=== PATIENT | female | born 1990 | race Caucasian/White ===

== ENCOUNTER 2017-07-27 00:20 | Emergency (ER) | payer SELFPAY ==
[~2017-07-27] VITALS: Ht 177.8 cm; Wt 90.9 kg
[~2017-07-27 00:20] MED LIST: BACTRIM DS1 TAB PO; NO HOME MEDS; ULTRAM50 M1 PO
[2017-07-27 01:27] LABS: HEMATOCRIT 38.1 % (37.0-47.0); HEMOGLOBIN 12.5 g/dl (12.0-16.0); IMMATURE GRANULOCYTES 0.3 % (0.0-1.0); MEAN CELL VOLUME 91.4 fL CALC (80.0-100.0); MEAN CORPUSCULAR HGB CONC 32.8 g/L CALC (32.0-36.0); NEUT# 8.09 thou/uL (2.00-7.15); RED BLOOD COUNT 4.17 mill/uL (4.20-5.60); RED CELL DISTRI WIDTH 14.1 % (11.5-15.5)
[2017-07-27] MEDS ORDERED: CLARITHROMYC500 MG PO (02:58)
[2017-07-27 03:07] VITALS: BP 113/61
== END 2017-07-27 03:20 | disposition home or self-care (01) | DRG 778 ==
LOC: ED 00:20
PROVIDERS: Family Medicine
DX: O20.0 Threatened abortion (principal); F17.290 Nicotine dependence, other tobacco product, uncomplicated; Z3A.08 8 weeks gestation of pregnancy; J40 Bronchitis, not specified as acute or chronic

== ENCOUNTER 2023-04-18 14:39 | Emergency (ER) | payer OTHER ==
[~2023-04-18] VITALS: Ht 177.8 cm; Wt 113.3 kg
[~2023-04-18 14:39] MED LIST changes: +CLARITHROMYC500 MG PO
[2023-04-18] MEDS ORDERED: SODIUM CHLORIDE 0.9% 1,000 ML IV ONE (14:55)
[2023-04-18 15:00] VITALS: BP 153/129
[2023-04-18 15:03] VITALS: BP 125/81
[2023-04-18 15:07] LABS: BASO% 0.4 % (0-3); EOS% 0.8 % (0-8); HEMATOCRIT 36.8 % (37.0-47.0); HEMOGLOBIN 12.1 g/dl (12.0-16.0); LYMPH% 20.8 % (15-41); MEAN CELL VOLUME 91.3 fL CALC (80.0-100.0); MEAN CORPUSCULAR HGB CONC 32.9 g/dL CAL (32.0-36.0); MONO% 8.4 % (2-13); NEUT# 8.07 thou/uL (2.00-7.15); NEUT% 68.6 % (42-76); RED BLOOD COUNT 4.03 mill/uL (4.20-5.60); RED CELL DISTRI WIDTH 13.8 % (11.5-15.5)
[2023-04-18 15:09] LABS: URINE BILIRUBIN - DIPSTICK Negative (NEGATIVE); URINE BLOOD DIPSTICK Negative (NEGATIVE); URINE COLOR Yellow; URINE GLUCOSE - DIPSTICK Negative (NEGATIVE); URINE KETONE Negative (NEGATIVE); URINE LEUK ESTERASE Trace (NEGATIVE); URINE NITRITE - DIPSTICK Negative (Negative); URINE PH 6.5 (4.5-8.0); URINE PROTEIN - DIPSTICK Negative (NEG-TRACE); URINE UROBILINOGEN - DIPSTICK 0.2 E.U./dL (0.2)
[2023-04-18] MEDS ORDERED: MAGNESIUM SULFATE IV ONE (15:10)
[2023-04-18] MEDS ORDERED: [UNRECOGNIZED DRUG - OTHER] IM ONE (15:10)
[2023-04-18 15:15] VITALS: BP 143/90
[2023-04-18] MEDS ORDERED: MAGNESIUM SULFATE HEPTAHYDRATE IV PRN (15:15)
[2023-04-18 15:26] LABS: ALBUMIN 3.4 g/dL (3.2-5.0); ALKALINE PHOSPHATASE 84 u/l (38-126); BUN 8 mg/dL (7-17); BUN/CREATININE RATIO 13 (12-20 (CALC)); CHLORIDE 109 mmol/l (95-108); CREATININE 0.6 mg/dL (0.5-1.0); GFR FOR AFR.AMER. > 60 ML/MIN (>=60 (CALC)); GFR OTHER RACES > 60 ML/MIN (>=60 (CALC)); POTASSIUM 4.3 mmol/l (3.5-5.1); SGOT/AST 25 u/l (14-36); SODIUM 136 mmol/l (137-146); TOTAL PROTEIN 6.4 g/dL (6.3-8.2)
[2023-04-18 15:27] LABS: ANION GAP 12 (6-22 (CALC)); BILIRUBIN, TOTAL 0.1 mg/dL (0.02-1.3); CARBON DIOXIDE 19 mmol/l (22-30)
[2023-04-18 15:44] VITALS: BP 143/90
== END 2023-04-18 15:45 | disposition short-term general hospital (02) | DRG 833 ==
LOC: ED 14:39
PROVIDERS: Family Medicine
DX: O60.03 Preterm labor without delivery, third trimester (principal); O99.333 Smoking (tobacco) complicating pregnancy, third trimester; F17.200 Nicotine dependence, unspecified, uncomplicated; Z3A.29 29 weeks gestation of pregnancy
CPT/HCPCS: J3475